=== PATIENT | female | born 1970 | race African-American/Black ===

== ENCOUNTER 2017-05-09 01:40 | Emergency (ER) | payer MEDICAID ==
[~2017-05-09] VITALS: Ht 162.6 cm; Wt 79.4 kg
[2017-05-09] MEDS ORDERED: diphenhdrAMINE HCL 50 MG/1 ML VL ONE (02:00)
[2017-05-09] MEDS ORDERED: methylPREDNISolone SOD SUCC 125 MG/2 ML VL ONE (02:01)
[2017-05-09] MEDS ORDERED: EPINEPHrine HCL 1 MG/1 ML AMP ONE (02:01)
[2017-05-09] MEDS ORDERED: diphenhdrAMINE HCL 50 MG/1 ML VL IV ONE (02:15)
[2017-05-09] MEDS ORDERED: EPINEPHrine HCL 1 MG/1 ML AMP SC ONE (02:15)
[2017-05-09] MEDS ORDERED: methylPREDNISolone SOD SUCC 125 MG/2 ML VL IV ONE (02:15)
[2017-05-09 05:05] VITALS: BP 121/74
[2017-05-09 05:14] LABS: Urine Bilirubin Negative (Negative); Urine Blood Negative /uL (Negative); Urine Color Yellow (Yellow); Urine Ketone 1+ (Negative); Urine Nitrite Negative (Negative); Urine RBC <1 /hpf (0 - 4); Urine Squamous Epithelial Cell FEW /hpf (<5); Urine Urobilinogen Normal (Negative)
[2017-05-09 06:04] LABS: Urine Glucose 4+ mg/dL (Normal)
== END 2017-05-09 06:07 | disposition home or self-care (01) ==
LOC: ER 01:46
DX: T50.905A Adverse effect of unspecified drugs, medicaments and biological substances, initial encounter (principal); R81 Glycosuria; Z88.2 Allergy status to sulfonamides; Y92.89 Other specified places as the place of occurrence of the external cause
CPT/HCPCS: 80307; 81001; 82962; 96372; 96374; 96375; 99284; J0171; J1200; J2930; J7030

== ENCOUNTER 2018-01-08 07:14 | Day surgery (SDC) | payer MEDICAID ==
[2018-01-03 12:52] LABS: Basophils # (auto) 0 uL; Basophils % (auto) 0.8 % (0.0-2.0); Eosinophils # (auto) 0.2 uL; Eosinophils % (auto) 3.8 % (0.0-7.0); Hematocrit 42.4 % (36.0-46.0); Hemoglobin 14.2 g/dL (12.2-16.2); Lymphocytes # (auto) 1.7 uL; Lymphocytes % (auto) 32.7 % (10.0-50.0); Mean Corpuscular Hemoglobin 29.6 pg (28.0-32.0); Mean Corpuscular Hgb Conc. 33.5 g/dL (32.0-36.0); Mean Corpuscular Volume 88.5 fL (80.0-100.0); Monocytes # (auto) 0.4 uL; Monocytes % (auto) 7.1 % (0.0-12.0); Neutrophils # (auto) 2.8 uL; Neutrophils % (auto) 55.6 % (37.0-80.0); Platelet Count (auto) 296 10^3/uL (140-450); Red Blood Cells 4.79 10^6/uL (4.0-5.20); Red Cell Distribution Width 14.2 % (11.8-14.3); White Blood Cell 5.1 10^3/uL (4.4-10.8)
[2018-01-03 13:08] LABS: Urine Bacteria FEW /hpf (None Seen); Urine Blood 2+ /uL (Negative); Urine Mucus FEW (None Seen); Urine Specific Gravity 1.024 (1.001-1.035); Urine WBC 3 /hpf (0 - 5)
[2018-01-03 13:14] LABS: INR 0.96 (0.9-1.15); Partial Thromboplastin Time 26.6 sec (23.78-33.04); Prothrombin Time 10.3 sec (9.27-12.13)
[2018-01-03 13:17] LABS: Albumin 3.6 g/dL (3.4-5.0); BUN/Creatinine Ratio 10.1; Bilirubin, Total 0.5 mg/dL (0.2-1.0); Calcium 8.8 mg/dL (8.5-10.1); Potassium 3.8 mmol/L (3.5-5.1)
[~2018-01-08] VITALS: Ht 162.6 cm; Wt 83.9 kg
[2018-01-08] MEDS ORDERED: ceFAZolin 1GM/100ML 100 ML IV ONE (07:38)
[2018-01-08] MEDS ORDERED: SODIUM CHLORIDE LOCK 10 ML ONE (08:07)
[2018-01-08] MEDS ORDERED: MIDAZOLAM HCL 1MG/1ML-2 ML VIAL ONE (08:07)
[2018-01-08] MEDS ORDERED: ONDANSETRON HCL 4 MG/2 ML VIAL ONE (08:07)
[2018-01-08] MEDS ORDERED: fentaNYL CITRATE 100 MCG/2 ML VL ONE (08:07)
[2018-01-08] MEDS ORDERED: PROPOFOL 10 MG/ML 20 ML IV ONE (08:07)
[2018-01-08] MEDS ORDERED: BUPIVACAINE 0.75% INJ 10ML MPV SDV IJ ONE (08:34)
[2018-01-08] MEDS ORDERED: HYDROmorphone HCL 2 MG/ML VL IV PRN (09:30)
[2018-01-08] MEDS ORDERED: METOCLOPRAMIDE HCL 5MG/ml INJ 2ml VIAL IV ONE (09:30)
[2018-01-08] MEDS ORDERED: KETOROLAC TROMETH 30 MG/ML 1ML VIAL IV ONE (09:30)
[2018-01-08] MEDS ORDERED: NEOMYCIN-BACITRACIN-POLYM 15GM TOP OINT TOP ONE (09:34)
[2018-01-08 10:25] VITALS: BP 134/76
== END 2018-01-08 10:44 | disposition home or self-care (01) ==
LOC: SUR 07:14
PROVIDERS: ATTEND Podiatrist Foot & Ankle Surgery
DX: M21.622 Bunionette of left foot (principal); M20.42 Other hammer toe(s) (acquired), left foot; L84 Corns and callosities; L03.032 Cellulitis of left toe; L60.0 Ingrowing nail; E66.9 Obesity, unspecified; Z68.31 Body mass index [BMI] 31.0-31.9, adult; Z88.1 Allergy status to other antibiotic agents; Z88.2 Allergy status to sulfonamides; Z90.49 Acquired absence of other specified parts of digestive tract
CPT/HCPCS: 11750; 28110; 28285; J3010; L3260; 36415; 73620; 80053; 81001; 84702; 85025; 85610; 85730; C1769; J0690; J1885; J2250; J2405; J2704; J3490